=== PATIENT | male | born 1990 | race Caucasian/White ===

== ENCOUNTER 2019-04-11 13:22 | Emergency (ER) | payer OTHER ==
[~2019-04-11] VITALS: Ht 175.2 cm; Wt 77.1 kg
== END 2019-04-11 14:46 | disposition home or self-care (01) ==
LOC: ED 13:22
DX: S51.811A Laceration without foreign body of right forearm, initial encounter (principal); W45.8XXA Other foreign body or object entering through skin, initial encounter; Y93.89 Activity, other specified; Y92.89 Other specified places as the place of occurrence of the external cause; Y99.0 Civilian activity done for income or pay